=== PATIENT | male | born 1940 | race Two or more races ===

== ENCOUNTER → 2025-03-05 | Day surgery (SDC) | payer OTHER ==
[~2025-03-05] MED LIST: DIPHENHYDRAMINE HCL 50 MG/ML VIAL 1ML IV ONE; MIDAZOLAM HCL 2 MG/2 ML VIAL IV ONE; fentaNYL CITRATE 50 MCG/ML AMPUL IV ONE
== END | disposition home or self-care (01) ==
LOC: ADM 02-27 14:15 → AMB-ENDOS 07:00
PROVIDERS: ATTEND Surgery
DX: D12.2 Benign neoplasm of ascending colon (principal); K62.5 Hemorrhage of anus and rectum; K57.30 Diverticulosis of large intestine without perforation or abscess without bleeding; K63.5 Polyp of colon; K59.00 Constipation, unspecified